=== PATIENT | female | born 1945 | race African-American/Black ===

== ENCOUNTER 2018-10-21 07:27 | Day surgery (SDC) | payer BC, MEDICARE ==
[~2018-10-21] VITALS: Ht 170.2 cm; Wt 68.0 kg
[2018-10-21] MEDS ORDERED: CYCLOPENTOLATE HCL 1% OPHTH DROPS 2ML RIGHTEYE SCH (07:55)
[2018-10-21] MEDS ORDERED: PHENYLEPHRINE HCL 10% OPHTH DROPS 5ML RIGHTEYE SCH (07:55)
[2018-10-21] MEDS ORDERED: TROPICAMIDE 1% OPHTH DROPS 15ML RIGHTEYE SCH (07:55)
[2018-10-21] MEDS ORDERED: AZIL1TAB2 PO (09:34)
[2018-10-21] MEDS ORDERED: METF-414 PO (09:34)
[2018-10-21] MEDS ORDERED: HYALURONATE SODIUM 14 MG/ML 0.85ML SYRINGE IO ONE (09:46)
[2018-10-21] MEDS ORDERED: MIDAZOLAM HCL 2 MG/2 ML VIAL ONE (09:48)
[2018-10-21] MEDS ORDERED: PROPOFOL 200MG/20ML VIAL IV ONE (09:55)
[2018-10-21] MEDS ORDERED: BALANCED SALT IRRIG SOLN COMB1 500ML OP SCH (10:00)
[2018-10-21] MEDS ORDERED: SODIUM CHLORIDE 0.9% 1,000 ML IV ONE (10:33)
[2018-10-21] MEDS ORDERED: HYDROMORPHONE HCL/PF 2MG/ML CPJ IV PRN (10:45)
[2018-10-21] MEDS ORDERED: IBUPROFEN 600MG TABLET PO NR (10:45)
[2018-10-21] MEDS ORDERED: ONDANSETRON HCL 4MG/2ML INJ IV PRN (10:45)
[2018-10-21] MEDS ORDERED: TETRACAINE 0.5% OPHTH DROPS 4ML ONE (14:10)
[2018-10-21] MEDS ORDERED: BALANCED SALT IRRIG SOLN 15ML ONE (14:10)
[2018-10-21] MEDS ORDERED: ACETYLCHOLINE CHLORIDE INTRAOCULAR SOLUTION 1:100 ELECTROLYTE DILUENT IO ONE (14:10)
[2018-10-21] MEDS ORDERED: PREDNISOLONE ACETATE 1% OPHTH DROPS 1ML ONE (14:10)
[2018-10-21] MEDS ORDERED: LIDOCAINE HCL 2%/EPINEPHRINE 1:100,000 20 ML VIAL INFIL ONE (14:10)
[2018-10-21] MEDS ORDERED: GENTAMICIN SULF 40MG/ML 2ML VIAL ONE (14:10)
[2018-10-21] MEDS ORDERED: LIDOCAINE HCL/PF 2% 20 MG/ML 10ML VIAL ONE (14:10)
[2018-10-21] MEDS ORDERED: NEO/POLYMYX B SULF/DEXAMETH OPHTH OINT 3.5GM ONE (14:10)
[2018-10-21] MEDS ORDERED: BUPIVACAINE HCL/PF 0.75% (7.5MG/ML) 10ML ONE (14:10)
[2018-10-21] MEDS ORDERED: CIPROFLOXACIN 0.3% OPHTH SOLN 2.5ML ONE (14:10)
== END 2018-10-21 11:35 | disposition home or self-care (01) ==
LOC: OR 07:27 → EDBD 08:30 → OR 11:35
PROVIDERS: ATTEND Ophthalmology
DX: E11.36 Type 2 diabetes mellitus with diabetic cataract (principal); H25.89 Other age-related cataract; I10 Essential (primary) hypertension; Z72.89 Other problems related to lifestyle; Z79.899 Other long term (current) drug therapy
CPT/HCPCS: 66984; 82962; J1580; J2250; J2704; J3490; V2632